=== PATIENT | male | born 1985 | race Caucasian/White ===

== ENCOUNTER 2023-01-20 18:57 | Emergency (ER) | payer OTHER ==
[~2023-01-20] VITALS: Ht 180.3 cm; Wt 81.6 kg
[2023-01-20 19:25] VITALS: TEMP 98
[2023-01-20 19:57] LABS: BASOPHILS % (AUTO) 0.3 % (0.0-2.0); EOSINOPHILS # (AUTO) 0.1 K/uL (0.0-0.7); EOSINOPHILS % (AUTO) 0.6 % (0.0-6.0); HEMATOCRIT 47 % (39-51); HEMOGLOBIN 15.7 g/dL (13.5-17.5); LYMPHOCYTES # (AUTO) 2.7 K/uL (0.8-4.8); MEAN CORPUSCULAR HEMOGLOBIN 29 PG (26.0-33.0); MEAN CORPUSCULAR HGB CONC 34 g/dl (31.0-36.0); MEAN CORPUSCULAR VOLUME 88 fL (80-96); MONOCYTES # (AUTO) 0.5 K/uL (0.1-1.30); MONOCYTES % (AUTO) 5.4 % (2.0-12.0); NEUTROPHILS # (AUTO) 6.2 K/uL (1.8-8.9); NEUTROPHILS % (AUTO) 65.7 % (43.0-81.0); PLATELET COUNT (AUTO) 338 K/uL (150-450); RED BLOOD CELL COUNT(AUTO) 5.34 MIL/uL (4.5-6.0); WHITE BLOOD COUNT (AUTO) 9.5 K/uL (4.3-11.0)
[2023-01-20 20:06] LABS: CALCIUM, SERUM 8.6 mg/dL (8.5-10.1); CARBON DIOXIDE 27 mmol/L (21-32); CHLORIDE 98 mmol/L (98-107); GLUCOSE 132 mg/dL (74-106); POTASSIUM 3.3 mmol/L (3.5-5.1); SODIUM SERUM 143 mmol/L (136-145); UREA NITROGEN, BLOOD 10 mg/dL (7-18)
[2023-01-20 20:19] LABS: ALANINE AMINOTRANSFERASE 46 U/L (12-78); ALBUMIN 3.9 g/dL (3.4-5.0); ALKALINE PHOSPHATASE 69 U/L (46-116); ASPARTATE AMINOTRANSFERASE 38 U/L (15-37); BILIRUBIN,DIRECT 0.2 mg/dL (0.0-0.2); BILIRUBIN,TOTAL 0.5 mg/dL (0.2-1.0); NT-PRO BNP 18 pg/mL (0-125); TOTAL PROTEIN, SERUM 7.5 g/dL (6.4-8.2)
[2023-01-21 02:10] VITALS: BP 131/76; O2SAT 99
== END 2023-01-21 02:10 | disposition home or self-care (01) ==
LOC: ER 19:11
DX: F10.10 Alcohol abuse, uncomplicated (principal); R06.02 Shortness of breath; R51.9 Headache, unspecified; Y90.8 Blood alcohol level of 240 mg/100 ml or more
CPT/HCPCS: 36415; 70450-TC; 71045-TC; 80048-TC; 80076-TC; 82962-TC; 83880; 84484-TC; 85025-TC; G0480

== ENCOUNTER 2023-11-19 14:58 | Emergency (ER) | payer OTHER ==
[~2023-11-19] VITALS: Ht 172.7 cm; Wt 78.0 kg
[2023-11-19] MEDS: IBUPROFEN 600 MG TABLET PO ONE ×2 (15:58→16:01)
[2023-11-19] MEDS ORDERED: IBUPROFEN 600 MG TABLET ONE (15:59)
[2023-11-19] MEDS ORDERED: IBUP-1953 PO (16:45)
[2023-11-25 10:06] VITALS: BP 122/64; TEMP 98.1; O2SAT 100
== END 2023-11-19 17:00 | disposition home or self-care (01) ==
LOC: ER 15:05
DX: S20.211A Contusion of right front wall of thorax, initial encounter (principal); W50.0XXA Accidental hit or strike by another person, initial encounter; Y93.89 Activity, other specified; Y92.89 Other specified places as the place of occurrence of the external cause; Y99.8 Other external cause status
CPT/HCPCS: 71100-TC

== ENCOUNTER 2024-10-12 10:51 | Emergency (ER) | payer OTHER ==
[~2024-10-12] VITALS: Ht 172.7 cm; Wt 82.6 kg
[~2024-10-12 10:51] MED LIST: IBUP-1953 PO
[2024-10-12] MEDS ORDERED: CEPH-570 PO (11:18)
[2024-10-12] MEDS ORDERED: SULF1TAB48 PO (11:18)
[2024-10-12] MEDS ORDERED: CEPHALEXIN MONOHYDRATE 500 MG CAPSULE PO ONE (11:33)
[2024-10-12] MEDS ORDERED: SULFAMETH/TRIMETH 800/160 MG 1 UDTAB TABLET ONE (11:34)
[2024-10-12] MEDS: CEPHALEXIN MONOHYDRATE 500 MG CAPSULE PO ONE (11:36)
[2024-10-12] MEDS: SULFAMETH/TRIMETH 800/160 MG 1 UDTAB TABLET PO ONE (11:36)
[2024-10-12 11:43] VITALS: BP 137/70; TEMP 98.5; O2SAT 98
== END 2024-10-12 11:43 | disposition home or self-care (01) ==
LOC: ER 11:01
DX: L03.012 Cellulitis of left finger (principal); Z79.899 Other long term (current) drug therapy

== ENCOUNTER 2025-03-13 14:13 | Emergency (ER) | payer OTHER ==
[~2025-03-13] VITALS: Ht 172.7 cm; Wt 59.0 kg
[~2025-03-13 14:13] MED LIST changes: +CEPH-570 PO; +SULF1TAB48 PO
[2025-03-13] MEDS ORDERED: LIDOCAINE VISCOUS 2% UD 15 ML UDC ONE (15:48)
[2025-03-13] MEDS ORDERED: MAG HYDROX/AL HYDROX/SIMETH 30 ML UDC ONE (15:48)
[2025-03-13] MEDS ORDERED: ASPIRIN 81 MG TAB.CHEW ONE ×2 (15:49→15:50)
[2025-03-13] MEDS: LIDOCAINE VISCOUS 2% UD 15 ML UDC MM ONE (15:54)
[2025-03-13] MEDS: MAG HYDROX/AL HYDROX/SIMETH 30 ML UDC PO ONE (15:54)
[2025-03-13] MEDS: ASPIRIN 81 MG TAB.CHEW PO ONE (15:54)
[2025-03-13 16:12] LABS: PLATELET COUNT (AUTO) 237 K/uL (150-450); RED BLOOD CELL COUNT(AUTO) 4.58 MIL/uL (4.5-6.0); RED CELL DISTRIBUTION WIDTH 13.9 % (11.5-15.0); WHITE BLOOD COUNT (AUTO) 5.8 K/uL (4.3-11.0)
[2025-03-13 16:26] LABS: CALCIUM, SERUM 8.5 mg/dL (8.5-10.1); CREATININE 1.0 mg/dL (0.6-1.3); SODIUM SERUM 138 mmol/L (136-145); UREA NITROGEN, BLOOD 17 mg/dL (7-18)
[2025-03-13 16:31] LABS: ASPARTATE AMINOTRANSFERASE 20 U/L (15-37); TOTAL PROTEIN, SERUM 7.1 g/dL (6.4-8.2)
[2025-03-13 17:57] VITALS: BP 130/70; TEMP 98.5; O2SAT 99
== END 2025-03-13 17:57 | disposition home or self-care (01) ==
LOC: ER 14:17
DX: R07.89 Other chest pain (principal); F17.210 Nicotine dependence, cigarettes, uncomplicated
CPT/HCPCS: 36415; 71045-TC; 80048-TC; 80076-TC; 84484-TC; 85025-TC